=== PATIENT | male | born 1930 | race Caucasian/White ===

== ENCOUNTER 2016-06-28 16:16 | Inpatient (IN) | payer OTHER ==
[~2016-06-28] VITALS: Ht 170.2 cm; Wt 69.9 kg
[2016-06-28 22:55] LABS: BASOPHIL % 0.5 % (0-2); PLATELET COUNT 204 x10^3mcL (130-400); RED CELL DISTRIBUTION WIDTH 13.2 % (11.5-14.5)
[2016-06-28 23:02] LABS: CARBON DIOXIDE 25.5 mmol/L (21-32); CHLORIDE SERUM 104 mmol/L (98-107); CREATININE SERUM 1.7 mg/dL (0.7-1.3); GLUCOSE SERUM 98 mg/dL (74-106); POTASSIUM SERUM 4.4 mmol/L (3.5-5.1); SODIUM SERUM 139 mmol/L (136-145)
[2016-06-28 23:07] LABS: ALKALINE PHOSPHATASE 114 U/L (46-116); ALT/SGPT 39 U/L (16-63); AST/SGOT 83 U/L (15-37); BILIRUBIN TOTAL 0.5 mg/dL (0.20-1.00); TOTAL PROTEIN, SERUM 7.2 g/dL (6.4-8.2)
[2016-06-28 23:08] LABS: ALBUMIN 2.7 g/dL (3.4-5.0)
[2016-06-29] VITALS (7 sets, daily range): BP systolic 122–166; BP diastolic 71–93
[2016-06-29 00:47] LABS: T4(THYROXINE) 7.3 ug/dL (4.7-13.3)
[2016-06-29 02:05] LABS: CHOLESTEROL/HDL RATIO 4.3; MAGNESIUM 1.9 mg/dL (1.8-2.4); PHOSPHOROUS 4.1 mg/dL (2.5-4.9)
[2016-06-29 02:13] LABS: T3 TOTAL 0.98 ng/mL
[2016-06-29 02:23] LABS: FREE T4 1.37 ng/dL (0.76-1.46); FREE THYROXINE INDEX 2.8 ug/dL (1.4-4.5); T4(THYROXINE) 7.5 ug/dL (4.7-13.3)
[2016-06-29 04:30] LABS: UA SPECIFIC GRAVITY 1.015 (1.005-1.035); microscopic required? YES; urine erythrocyte TRACE (NEGATIVE)
[2016-06-29 06:41] LABS: CARBON DIOXIDE 25.7 mmol/L (21-32); CHLORIDE SERUM 108 mmol/L (98-107); CREATININE SERUM 1.7 mg/dL (0.7-1.3); GLUCOSE SERUM 113 mg/dL (74-106); MAGNESIUM 1.7 mg/dL (1.8-2.4); PHOSPHOROUS 4.2 mg/dL (2.5-4.9); POTASSIUM SERUM 4.5 mmol/L (3.5-5.1); SODIUM SERUM 141 mmol/L (136-145)
[2016-06-29 06:42] LABS: BASOPHIL % 0.1 % (0-2); PLATELET COUNT 181 x10^3mcL (130-400); RED CELL DISTRIBUTION WIDTH 13.2 % (11.5-14.5)
[2016-06-29 18:21] LABS: TOTAL IRON BINDING CAPACITY 95 ug/dL (250-450)
[2016-06-29 18:22] LABS: IRON 32 ug/dL (65-170)
[2016-06-29 20:18] LABS: BASOPHIL % 0.3 % (0-2); PLATELET COUNT 194 x10^3mcL (130-400); RED CELL DISTRIBUTION WIDTH 13.8 % (11.5-14.5)
[2016-06-30 06:34] VITALS: BP 151/88
[2016-06-30 07:01] LABS: CALCIUM 8.3 mg/dL (8.5-10.1); CARBON DIOXIDE 23.5 mmol/L (21-32); CHLORIDE SERUM 108 mmol/L (98-107); CREATININE SERUM 1.6 mg/dL (0.7-1.3); GLUCOSE SERUM 95 mg/dL (74-106); MAGNESIUM 1.7 mg/dL (1.8-2.4); PHOSPHOROUS 2.9 mg/dL (2.5-4.9); POTASSIUM SERUM 4.6 mmol/L (3.5-5.1); SODIUM SERUM 139 mmol/L (136-145)
[2016-06-30 07:13] LABS: BASOPHIL % 0.4 % (0-2); PLATELET COUNT 188 x10^3mcL (130-400); RED CELL DISTRIBUTION WIDTH 13.2 % (11.5-14.5)
[2016-06-30 09:10] VITALS: BP 150/78
[2016-06-30 14:33] VITALS: BP 144/90
[2016-06-30 18:36] VITALS: BP 138/90
[2016-06-30 21:51] VITALS: BP 135/87
[2016-07-01 04:49] VITALS: BP 161/90
[2016-07-01 05:59] LABS: PLATELET COUNT 190 x10^3mcL (130-400); RED CELL DISTRIBUTION WIDTH 13.2 % (11.5-14.5)
[2016-07-01 06:29] LABS: CALCIUM 8.7 mg/dL (8.5-10.1); CARBON DIOXIDE 22.4 mmol/L (21-32); CHLORIDE SERUM 104 mmol/L (98-107); CREATININE SERUM 1.6 mg/dL (0.7-1.3); GLUCOSE SERUM 105 mg/dL (74-106); MAGNESIUM 1.8 mg/dL (1.8-2.4); PHOSPHOROUS 3.2 mg/dL (2.5-4.9); POTASSIUM SERUM 4.4 mmol/L (3.5-5.1); SODIUM SERUM 138 mmol/L (136-145)
[2016-07-01 09:40] VITALS: BP 151/88
[2016-07-01 11:09] LABS: ATYPICAL LYMPH 1 %; BAND NEUTROPHIL 1 % (0-10); BASOPHIL 1 % (0-2); MONOCYTE 4 % (0-7); MYELOCYTE 3 % (0-2); SEGMENTED NEUTROPHILS 86 % (37-75)
[2016-07-01 11:11] LABS: PLATELET MORPHOLOGY PLATELETS DECREASED; rbc morphology (normal/abnorm) ABNORMAL (NORMAL)
[2016-07-01 18:34] VITALS: BP 156/91
[2016-07-01 21:44] VITALS: BP 125/75
[2016-07-02 05:58] VITALS: BP 115/66
[2016-07-02 06:13] LABS: CARBON DIOXIDE 22.3 mmol/L (21-32); CHLORIDE SERUM 104 mmol/L (98-107); CREATININE SERUM 1.6 mg/dL (0.7-1.3); GLUCOSE SERUM 120 mg/dL (74-106); MAGNESIUM 1.7 mg/dL (1.8-2.4); PHOSPHOROUS 3.2 mg/dL (2.5-4.9); SODIUM SERUM 136 mmol/L (136-145)
[2016-07-02 06:19] LABS: BASOPHIL % 0.3 % (0-2); PLATELET COUNT 183 x10^3mcL (130-400)
[2016-07-02 08:30] VITALS: BP 127/68
[2016-07-02 11:53] LABS: BASOPHIL % 0.2 % (0-2); PLATELET COUNT 193 x10^3mcL (130-400); RED CELL DISTRIBUTION WIDTH 12.8 % (11.5-14.5)
[2016-07-02 12:40] VITALS: BP 118/65
[2016-07-02 17:11] VITALS: BP 145/80
[2016-07-02 20:32] VITALS: BP 141/76
[2016-07-03 06:08] LABS: BASOPHIL % 0.1 % (0-2); PLATELET COUNT 202 x10^3mcL (130-400); RED CELL DISTRIBUTION WIDTH 13.1 % (11.5-14.5)
[2016-07-03 06:37] VITALS: BP 137/80
[2016-07-03 06:41] LABS: CARBON DIOXIDE 24.3 mmol/L (21-32); CHLORIDE SERUM 102 mmol/L (98-107); CREATININE SERUM 1.5 mg/dL (0.7-1.3); GLUCOSE SERUM 108 mg/dL (74-106); MAGNESIUM 1.9 mg/dL (1.8-2.4); PHOSPHOROUS 3.5 mg/dL (2.5-4.9); POTASSIUM SERUM 4.2 mmol/L (3.5-5.1); SODIUM SERUM 135 mmol/L (136-145)
[2016-07-03 09:58] VITALS: BP 138/83
[2016-07-03 12:41] VITALS: BP 132/83
[2016-07-03 13:20] VITALS: BP 156/78
[2016-07-03] MEDS ORDERED: CIPRO500 MG PO (13:23)
[2016-07-03] MEDS ORDERED: COLACE100 MG PO (13:24)
[2016-07-03] MEDS ORDERED: LAC PO (13:24)
[2016-07-03] MEDS ORDERED: METOPROLOL TART50 MG PO (13:25)
[2016-07-03] MEDS ORDERED: VITAMIN C PURE500 M1 PO (13:26)
[2016-07-03] MEDS ORDERED: FERROUS GLUCON324 MG PO (13:27)
[2016-07-03] MEDS ORDERED: ADULT LOW DOSE81 MG PO (13:28)
[2016-07-03] MEDS ORDERED: TRAMADOL HCL50 MG PO (13:29)
[2016-07-03] MEDS ORDERED: TERAZOSIN HCL5 MG PO (13:29)
[2016-07-03] MEDS ORDERED: CLOPIDOGREL75 M1 PO (13:30)
[2016-07-03 14:48] VITALS: BP 156/78
== END 2016-07-03 15:52 | disposition home health service (06) | DRG 302 ==
LOC: ED 16:16 → DU 06-29 00:36
PROVIDERS: Emergency Medicine; Family Medicine; Internal Medicine Cardiovascular Disease; ADMIT Family Medicine
DX: I25.10 Atherosclerotic heart disease of native coronary artery without angina pectoris (principal); E43 Unspecified severe protein-calorie malnutrition; N17.0 Acute kidney failure with tubular necrosis; I24.8 Other forms of acute ischemic heart disease; N13.1 Hydronephrosis with ureteral stricture, not elsewhere classified; M48.56XA Collapsed vertebra, not elsewhere classified, lumbar region, initial encounter for fracture; S76.911A Strain of unspecified muscles, fascia and tendons at thigh level, right thigh, initial encounter; I42.9 Cardiomyopathy, unspecified; N28.89 Other specified disorders of kidney and ureter; I73.9 Peripheral vascular disease, unspecified; I10 Essential (primary) hypertension; K56.41 Fecal impaction; K43.9 Ventral hernia without obstruction or gangrene; K42.9 Umbilical hernia without obstruction or gangrene; K40.90 Unilateral inguinal hernia, without obstruction or gangrene, not specified as recurrent; K64.9 Unspecified hemorrhoids; R00.0 Tachycardia, unspecified; N43.3 Hydrocele, unspecified; M19.011 Primary osteoarthritis, right shoulder; E83.42 Hypomagnesemia; E78.5 Hyperlipidemia, unspecified; Z66 Do not resuscitate; Z95.820 Peripheral vascular angioplasty status with implants and grafts; Z79.02 Long term (current) use of antithrombotics/antiplatelets; Z96.642 Presence of left artificial hip joint; Z96.652 Presence of left artificial knee joint; Z68.23 Body mass index [BMI] 23.0-23.9, adult; W10.8XXA Fall (on) (from) other stairs and steps, initial encounter; Y92.008 Other place in unspecified non-institutional (private) residence as the place of occurrence of the external cause
CPT/HCPCS: 78598; 83880; 84439; 85378; 94150; 97110-GP; 97116-GP; 97530-GP; A9500; A9540; G0480; J0696; J1644; J2785; J7030; Q0092

== ENCOUNTER 2016-07-11 16:19 | Observation (INO) | payer OTHER ==
[~2016-07-11] VITALS: Ht 170.2 cm; Wt 68.0 kg
[~2016-07-11 16:19] MED LIST: ADULT LOW DOSE81 MG PO; CIPRO500 MG PO; CLOPIDOGREL75 M1 PO; COLACE100 MG PO; FERROUS GLUCON324 MG PO; LAC PO; METOPROLOL TART50 MG PO; TERAZOSIN HCL5 MG PO; TRAMADOL HCL50 MG PO; VITAMIN C PURE500 M1 PO
--- NOTE | 2016-07-11 17:00 | NUR ---
PT C/O R LEG PAIN, RASHI FLANK PAIN, AND DECREASED APPETITE. PT REPORTS BEING HERE RECENTLY FOR SAME. PT NOTED TO HAVE FRIAS CATH WITH YELLOW URINE DRAINING. PT IS A/O, RESP EVEN AND UNLABORED, RA. PT PLACED ON AUTOMOTIVE PAINTER AND PULSE OX.
--- NOTE | 2016-07-11 17:03 | NUR ---
DR GONZALEZ AT BEDSIDE FOR MSE
[2016-07-11 17:38] LABS: PLATELET COUNT 194 x10^3mcL (130-400); RED CELL DISTRIBUTION WIDTH 13.5 % (11.5-14.5)
[2016-07-11 17:48] LABS: CALCIUM 8.7 mg/dL (8.5-10.1); CARBON DIOXIDE 26.9 mmol/L (21-32); CHLORIDE SERUM 102 mmol/L (98-107); CREATININE SERUM 2.3 mg/dL (0.7-1.3); GLUCOSE SERUM 138 mg/dL (74-106); SODIUM SERUM 136 mmol/L (136-145)
[2016-07-11 17:54] LABS: ALKALINE PHOSPHATASE 295 U/L (46-116); ALT/SGPT 95 U/L (16-63); AST/SGOT 454 U/L (15-37); BILIRUBIN TOTAL 0.55 mg/dL (0.20-1.00); CHOLESTEROL 171 mg/dL (<200); PHOSPHOROUS 5.6 mg/dL (2.5-4.9); TOTAL PROTEIN, SERUM 6.7 g/dL (6.4-8.2); URIC ACID 7.1 mg/dL (3.5-7.2)
[2016-07-11 17:56] LABS: ALBUMIN 2.2 g/dL (3.4-5.0); HDL CHOLESTEROL 26 mg/dL (40-60)
[2016-07-11 18:18] LABS: BAND NEUTROPHIL 2 % (0-10); BASOPHIL 0 % (0-2); MONOCYTE 5 % (0-7); SEGMENTED NEUTROPHILS 86 % (37-75); rbc morphology (normal/abnorm) NORMAL (NORMAL)
[2016-07-11 18:31] LABS: UA SPECIFIC GRAVITY 1.025 (1.005-1.035); microscopic required? YES; urine erythrocyte TRACE (NEGATIVE)
--- NOTE | 2016-07-11 18:39 | NUR ---
PT REMAINS IN STABLE CONDITION AND SLEEPING AT THIS TIME. RESP EVEN AND UNLABORED, RA. VS STABLE, NAD NOTED
--- NOTE | 2016-07-11 19:42 | NUR ---
REPORT CALLED TO HAKAN TO ASSUME CARE OF PT
[2016-07-11 20:11] VITALS: BP 140/82
--- NOTE | 2016-07-11 20:16 | NUR ---
RECEIVED PT FROM ED VIA [facility]. ORIENTED PT TO ROOM AND SURROUNDINGS. IV NOTED TO LAC PATENT AND INTACT. INSTRUCTED PT ON THE USE OF CALL LIGHT FOR ASSISTANCE. ENDORSED PT TO PRIMARY NURSE HAKAN
[2016-07-11 20:18] LABS: CHOLESTEROL/HDL RATIO 6.4
[2016-07-11 20:24] LABS: FREE T4 1.12 ng/dL (0.76-1.46); T4(THYROXINE) 5.7 ug/dL (4.7-13.3)
[2016-07-11 20:25] LABS: T3 TOTAL 0.57 ng/mL
[2016-07-11 21:50] VITALS: BP 140/82
[2016-07-11 22:47] VITALS: BP 141/83
--- NOTE | 2016-07-12 00:29 | NUR ---
LATE ENTRY: 2002H - RECEIVED FROM ER, TRANSPORTED VIA [facility]. AWAKE AND ALERT, ORIENTED X 4. SPEECH CLEAR AND APPROPRIATE. STATED SOUGHT ADMISSION DUE TO POOR APPETITE PAST 2 DAYS. BREATHING EVEN AND UNLABORED ON 2LPM OF O2 VIA NC. HOB ELEVATED 30 DEG. UPPER SIDE RAILS RAISED. DENIES HAVING PAIN. LARGE LEFT INGUINAL HERNIA NOTED. INSTRUCTED ON USE OF CALL LIGHT TO CALL FOR ASSISTANCE. PLACED WITHIN EASY REACH. HOB ELEVATED 30 DEG. UPPER SIDE RAILS RAISED. BED IN LOWEST POSITION.
--- NOTE | 2016-07-12 00:30 | NUR ---
EYES CLOSED, BREATHING EVEN AND UNLABORED. BED ALARM ON. CALL LIGHT WITHIN EASY REACH.
[2016-07-12 04:30] LABS: AMPHETAMINE QUAL UR NONE DETECTED (NEG <=1000)
[2016-07-12 05:34] VITALS: BP 125/75
[2016-07-12 06:02] LABS: PLATELET COUNT 169 x10^3mcL (130-400); RED CELL DISTRIBUTION WIDTH 14.3 % (11.5-14.5)
--- NOTE | 2016-07-12 06:22 | NUR ---
STATED ABLE TO SLEEP WELL. BREATHING REMAINED EVEN AND UNLABORED. 750ML URINE DRAINED FROM FRIAS BAG. FRIAS CLEANSED PER PROTOCOL.
[2016-07-12 06:34] LABS: CALCIUM 8.3 mg/dL (8.5-10.1); CARBON DIOXIDE 25.4 mmol/L (21-32); CHLORIDE SERUM 105 mmol/L (98-107); CREATININE SERUM 1.7 mg/dL (0.7-1.3); GLUCOSE SERUM 95 mg/dL (74-106); MAGNESIUM 2.1 mg/dL (1.8-2.4); PHOSPHOROUS 5.3 mg/dL (2.5-4.9); POTASSIUM SERUM 4.6 mmol/L (3.5-5.1); SODIUM SERUM 140 mmol/L (136-145)
--- NOTE | 2016-07-12 07:20 | NUR ---
RECEIVED Pt. AAOX4. RESPIRATIONS EVEN AND UNLABORED O2 2L/MIN NC DENIES PAIN/DISCOMFORT AT THIS TIME NO DISTRESS NOTED. IVF RUNNING TO IV AT LEFT AC PATENT AND INTACT TELE IN PLACE. FRIAS CATHETER DRAINING YELLOW URINE NOTED LEFT INGUINAL HERNIA NOTED. BED LOW/LOCKED. CALL LIGHT IN REACH. WILL CONTINUE TO MONITOR.
--- NOTE | 2016-07-12 07:20 | NUR ---
RECEIVED Pt. AAOX4. RESPIRATIONS EVEN AND UNLABORED O2 2L/MIN NC NO DISTRESS NOTED. DENIES PAIN/DISCOMFORT AT THIS TIME. IVF RUNNING TO IV AT LEFT AC PATENT AND INTACT. TELE IN PLACE. LEFT INGUINAL HERNIA NOTED. FRIAS CATHETER DRAINING YELLOW URINE NOTED. BED LOW/LOCKED. CALL LIGHT IN REACH.
--- NOTE | 2016-07-12 07:52 | NUR ---
cancellation requested for echocardiogram
--- NOTE | 2016-07-12 08:25 | NUR ---
MADE ROUNDS WITH DR. BOSS AND MEDICINE TEAM, POSSIBLE DISCHARGE TODAY AND AGREED WITH PLAN OF CARE.
[2016-07-12 09:29] VITALS: BP 137/78
--- NOTE | 2016-07-12 10:33 | NUR ---
Pt. X 1 EMESIS SMALL AMOUNT, ICE CHIPS AND ZOFRAN IVP GIVEN WILL CONTINUE TO MONITOR.
[2016-07-12 11:29] LABS: BAND NEUTROPHIL 3 % (0-10); BASOPHIL 0 % (0-2); MONOCYTE 6 % (0-7); SEGMENTED NEUTROPHILS 88 % (37-75)
[2016-07-12 11:30] LABS: PLATELET MORPHOLOGY PLATELETS DECREASED; rbc morphology (normal/abnorm) ABNORMAL (NORMAL)
--- NOTE | 2016-07-12 12:30 | NUR ---
Pt. DENIES NAUSEA/VOMITING AT THIS TIME, EATING LUNCH TRAY TOLERATED DIET WELL.
[2016-07-12 13:00] VITALS: BP 133/77
--- NOTE | 2016-07-12 13:05 | NUR ---
P.T. NOTES/INITIAL EVAL [id number] Pt WAS ADMITTED DUE TO PNA; Pt LIVES IN [facility] HOUSE W/ (HAD BACK SX YRS. AGO); BEDROOM UPSTAIRS; DOES NOT DRIVE ANYMORE; DRIVES; Pt AMBULATORY W/ FWW; HAS SPC; RETIRED [employer], [employer]. S: Pt WAS SEEN AWAKE & ALERT IN BED; ORIENTED x3, ABLE TO FOLLOW SIMPLE COMMANDS, AGREEABLE & COOPERATIVE W/ P.T.; SPEAKS MONGOLIAN/SETSWANA; NO C/O PAIN OR DIZZINESS AT THIS TIME, DEMO NAUSEA; ON O2 N/C @2LPM. O: BED MOBILITY: MOD ASSIST IN SUPINE TO SIT TRANSFERS: MAX ASSIST IN SIT TO STAND W/ FWW GAIT: MAX ASSIST W/ FWW X 8 FT (SIDESTEPS TOWARDS HOB, FORWARD & BACKWARD STEPS AT BEDSIDE), UNABLE TO AMBU FARTHER DUE TO WEAKNESS, INC UNSTEADINESS. Pt ASSISTED TO BED SAFELY; HOB ELEVATED, CALL MCKINLEY, PHONE, TABLE IN REACH; O2 IN PLACE; F/C INTACT; BED ALARM ON; APPRECIATIVE. A:Pt DEMO GOOD RESPONSE TO P.T. SESSION; FALL RISK; Pt EDUC ON SAFE GAIT, HEP, USE OF CALL LIGHT FOR NURSE ASSIST, VERBALIZED UNDER- STANDING, GOOD FOLLOW THRU; TH=828/80, RO=273, O2 SAT ROOM AIR=93%; TENDS TO RETROLEAN, UNSTEADY GAIT, DEC HEEL STRIKE & TOE OFF. P:CONT PT ONCE DAILY 6X/WK X 1 WK; POC & DX DISCUSSED W/ ENGINEER PROCESS; WILL BENEFIT W/ P.T. AFTER ACUTE STAY PRIOR TO RETURNING HOME W/ ; MAY REQ 2-PERSON ASSIST TO PROGRESS GAIT AT THIS TIME. [id number] GCODES:[id number] [facility] REACH SCORE:16 inches [id number] Pt WAS GIVEN THERA EXER UE/LE ZURI; CONT PT EX8
--- NOTE | 2016-07-12 13:49 | NUR ---
Initial Nutrition Assessment Dx: Dehydration, Pneumonia, Leukocytosis PMHx: L inguinal hernia, HTN, HLD, 5 mm calcified lower lobe granuloma, bilateral hydroceles, L2 vertebral body compression fracture, age indeterminate PSHx: Hernia repair (x3, last one 10 year ago), L hip replacement, L knee replacement, stent (2 vessels, unknown, possible cardiac) Labs: BG 95, BUN 48 H, Cr 1.7 H, Phosphorous 5.3 H, WBC 18.5 H, H/H 8.9/27 L; (07/11) ALB 2.2 L, AST 454 H, ALT 95 H, CK 2893 H, Triglycerides 170 H, LDL 108 H, A1C 6.2 Meds: Colace, lactinex, megace, phoslo, NS IV, vitamin C 500 mg daily, zofran Current Diet Order: Cardiac PO Intakes: (07/12) B: 20% Ht: 67", 5' 7". Wt: 150 lb, 68 kg. BMI: 23.5 kg/m2 (Normal) IBW: 148 lb, 67 kg. %IBW: 101%. UBW: 160 lb, 72 kg. Wt Hx: (06/29/16) 150 lb, 68 kg. Age: 86 Y/O M Food Allergies: None Skin: RLE redness, dry scabs, L hip bruising, Coccyx blanchable redness. Jorge 20. Edema: None GI: Active bowel sounds. Last BM 07/11. Formed stool. Nutrition Consult: Severe malnutrition with no intakes x2 days. Nursing Trigger: Poor PO intakes >3 days. Pt found with SOB with low appetite secondary to possible aspiration pneumonia per doctor's notes. Pt was seen eating lunch, appears to be slightly out of breath, forgetful during RD visit. Pt reported too much food on tray, unable to finish everything. Pt also stated that he has a lack of appetite over the past couple of weeks, nothing seems appetizing to pt. RD offered other food options, pt agreeable with cream of wheat, orange juice, and coffee for breakfast tomorrow. Pt also agreeable with Boost Plus oral supplement with meals to aid in PO intakes. Spoke with Dr. López at nursing station regarding recommendations, doctor agreeable, reported pt will be transferred out today. Pt does exhibit some muscle wasting on clavicle areas, poor PO intakes approximately 2-3 days, does not meet criteria for severe malnutrition. Problem with: N: None. V: x1 this morning. D: None. C: None. Problems with: Chewing: None. Swallowing: None. Current Appetite: Poor Recent Weight Change: -10 lb. % Weight Change: 6.2% weight loss within last couple of weeks Vitamin/Supplement use: MVI, Ensure daily as snack Diet at Home: Regular; 1-2 small meals prepared by Physical Activity: Uses walker to ambulate Education: RD encouraged pt to increase PO intakes during meals as well as to drink oral supplement Estimated Nutritional Needs Based CBW 150 lb, 68 kg Energy: 4001-3667 kcal/day (25-30 kcal/kg for Geriatric Maintenance) Protein: 68-82 gm/day (1-1.2 gm/kg for Pneumonia) Fluids: 1700 ml/day (25 ml/kg for Geriatric Maintenance) or per doctor Nutrition Diagnosis Inadequate oral intakes related to short of breath secondary to pneumonia as evidenced by poor PO intakes 20% x1 meal Intervention 1. Recommend liberalizing to Mechanical Soft, Chopped, 2 gm Na diet. No further restrictions warranted due to poor PO intakes. 2. Recommend Boost Plus BID (720 kcal, 28 gm protein) to aid in low PO intakes. 3. Recommend Theragran daily. 4. Encourage PO intakes. Monitor/Evaluate Goal: PO intakes to meet at least 50% of estimated needs with tolerance Monitor: PO intakes, tolerance to diet, labs, skin integrity, GI function, weights F/U in 3-5 days as MODERATE risk (07/15-07/17)
[2016-07-12] MEDS ORDERED: THERA TABS1 TAB PO (15:58)
[2016-07-12] MEDS ORDERED: LAC PO (15:58)
[2016-07-12] MEDS ORDERED: IPRATROPIUM BROM3 M2 HHN (15:58)
[2016-07-12] MEDS ORDERED: LEVAQUIN750 MG PO (15:59)
--- NOTE | 2016-07-12 16:00 | NUR ---
Pt. ACCIDENTALLY PULLED OUT IV AT LEFT AC CATH INTACT. NEW IV STARTED AT RIGHT FOREARM 22G PATENT AND INTACT, RESUMED IVF.
[2016-07-12 16:25] VITALS: BP 133/77
[2016-07-12 16:47] VITALS: BP 146/76
--- NOTE | 2016-07-12 17:57 | NUR ---
REPORT GIVEN TO WOLF THAKKAR FROM [facility].
--- NOTE | 2016-07-12 18:55 | NUR ---
Pt. AAOX4. RESPIRATIONS EVEN AND UNLABORED. DENIES PAIN/DISCOMFORT. NO DISTRESS NOTED. TELE IN PLACE. IVF RUNNING TO IV AT RIGHT FOREARM PATENT AND INTACT. FRIAS CATHETER DRAINING YELLOW URINE NOTED. BED LOW/LOCKED. CALL LIGHT IN REACH.
--- NOTE | 2016-07-12 19:43 | NUR ---
EYES CLOSED, EASILY AWAKENED. ORIENTED X 4. BREATHING EVEN AND UNLABORED ON ROOM AIR. FRIAS CATH DRAINING YELLOW URINE. [facility] DENIES HAVING PAIN. HOB KEPT ELEVATED 30 DEG. UPPER SIDE RAILS KEPT RAISED, CALL LIGHT WITHIN EASY REACH.
--- NOTE | 2016-07-12 20:03 | NUR ---
TRANSFERRED TO [facility]. REPORT GIVEN TO [facility]. TRANSFERRED ON [facility]. PT AWAKE AND ALERT, IN NO ACUTE DISTRESS. TELEBOX RETURNED TO MONITOR STATION. PT WITH FRIAS AND SALINE LOCK.
== END 2016-07-12 19:55 | DRG 177 ==
LOC: ED 16:19 → DU 19:25
PROVIDERS: Emergency Medicine; ADMIT Family Medicine
DX: J69.0 Pneumonitis due to inhalation of food and vomit (principal); N17.0 Acute kidney failure with tubular necrosis; E43 Unspecified severe protein-calorie malnutrition; I50.43 Acute on chronic combined systolic (congestive) and diastolic (congestive) heart failure; I42.2 Other hypertrophic cardiomyopathy; N13.1 Hydronephrosis with ureteral stricture, not elsewhere classified; M62.82 Rhabdomyolysis; M48.56XA Collapsed vertebra, not elsewhere classified, lumbar region, initial encounter for fracture; E86.0 Dehydration; I10 Essential (primary) hypertension; I25.10 Atherosclerotic heart disease of native coronary artery without angina pectoris; E78.5 Hyperlipidemia, unspecified; E83.39 Other disorders of phosphorus metabolism; Z66 Do not resuscitate; Z96.642 Presence of left artificial hip joint; Z96.652 Presence of left artificial knee joint; Z68.23 Body mass index [BMI] 23.0-23.9, adult
CPT/HCPCS: 80307; 83880; 84439; 94150; 97110-GP; G0378; G0480; J1956; J2405; J3490; J7030; Q0092